=== PATIENT | female | born 1970 | race Two or more races ===

== ENCOUNTER 2023-04-21 21:26 | Emergency (ER) | payer OTHER ==
[~2023-04-21] VITALS: Ht 154.9 cm; Wt 115.6 kg
[2023-04-21 22:20] VITALS: BP 144/86; PULSE 101; RESP 16; O2SAT 95
[2023-04-22 02:54] LABS: COVID19 ANTIGEN SOFIA FIA NEGATIVE (NEGATIVE)
[2023-04-22 02:55] LABS: Rapid Influenza A Negative (Negative); Rapid Influenza B Negative (Negative)
[2023-04-22] MEDS ORDERED: cefTRIAXone SOD 1,000 MG VL IM ONE (03:30)
[2023-04-22] MEDS ORDERED: methylPREDNISolone SOD SUCC 125 MG/2 ML VL IM ONE (03:30)
== END 2023-04-22 05:48 ==
LOC: EEVIPCON 21:26 → ER 21:26
DX: J06.9 Acute upper respiratory infection, unspecified (principal); I10 Essential (primary) hypertension; E11.9 Type 2 diabetes mellitus without complications; Z98.890 Other specified postprocedural states; Z20.822 Contact with and (suspected) exposure to COVID-19
CPT/HCPCS: 36415; 71045; 87426; 87804; 96372; 99284; J0696; J2930